=== PATIENT | female | born 1975 | race Two or more races ===

== ENCOUNTER → 2016-06-11 | Outpatient (CLI) | payer MEDICAID ==
--- NOTE | ~2016-06-11 | US128 ---
[id number] [facility]. [facility] [address]. [place], [place] [address] [id number] O MR#: [id number] Acc #: [id number] NAME: ZHANNA MATHIAS : 1975 SEX: F STUDY DATE/TIME: 06/11/2016 15:02 UNIT: [facility]US ROOM: STUDY DESCRIPTION: Thyroid Attending Physician: Kanchan Tristan Referring Physician: Kanchan Tristan Ordering Physician: Dion Tristan M.D. Primary Care Physician: Kiran Redmond M.D. MEDICAL IMAGING REPORT This report is preliminary unless electronic signature is present EXAM Thyroid ultrasound 06/11/2016 HISTORY Excessive hair loss for 3 years and history of thyroid nodules on an outside ultrasound 3 years ago. FINDINGS There is no prior exam for comparison. The right thyroid lobe measured 3.8 cm x 1.5 cm x 1.5 cm while the left lobe measured 1.8 cm x 4.2 cm x 1 cm. The isthmus measured 1 mm in the AP direction. Both thyroid lobes are homogeneous in echotexture and demonstrate no cystic or solid nodules. There are no masses extrinsic to the thyroid. Color-flow Doppler images show normal blood flow to both thyroid lobes. IMPRESSION Negative thyroid ultrasound. Dictated by... Holland Hinton M.D. THIS IS AN ELECTRONICALLY VERIFIED REPORT Holland Hinton M.D. at 06/12/2016 3:25 PM KRT/su TD: 06/12/2016 10:27 JOB #: [id number] MEDICAL IMAGING REPORT COPY
== END | disposition home or self-care (01) ==
LOC: CGUS 14:35
DX: E01.0 Iodine-deficiency related diffuse (endemic) goiter (principal); Z86.39 Personal history of other endocrine, nutritional and metabolic disease
CPT/HCPCS: 76536